=== PATIENT | female | born 1955 | race Two or more races ===

== ENCOUNTER 2017-12-28 07:44 | Emergency (ER) | payer OTHER ==
[~2017-12-28] VITALS: Ht 160 cm; Wt 75.7 kg
== END 2017-12-28 09:41 | disposition home or self-care (01) ==
LOC: ER 07:44
DX: S92.512A Displaced fracture of proximal phalanx of left lesser toe(s), initial encounter for closed fracture (principal); W18.09XA Striking against other object with subsequent fall, initial encounter; Y93.01 Activity, walking, marching and hiking; Y92.488 Other paved roadways as the place of occurrence of the external cause; Y99.8 Other external cause status

== ENCOUNTER 2023-09-29 13:53 | Emergency (ER) | payer OTHER ==
[~2023-09-29] VITALS: Ht 160 cm; Wt 77.1 kg
[2023-09-29] MEDS ORDERED: METFORMIN HCL500 M3 (14:08)
[2023-09-29] MEDS ORDERED: COZAAR25 MG PO (14:09)
[2023-09-29] MEDS ORDERED: LIPITOR40 M1 PO (14:10)
[2023-09-29] MEDS ORDERED: LINZESS290 MCG PO (14:10)
[2023-09-29] MEDS ORDERED: ECOTRIN81 MG (14:10)
[2023-09-29] MEDS ORDERED: ZEGERID 40 MG1 EACH (14:10)
== END 2023-09-29 18:27 | disposition home or self-care (01) ==
LOC: ER 13:54
DX: S61.022A Laceration with foreign body of left thumb without damage to nail, initial encounter (principal); W26.0XXA Contact with knife, initial encounter; Y93.89 Activity, other specified; Y92.89 Other specified places as the place of occurrence of the external cause
CPT/HCPCS: 90471; 90714; 96372; 99284; J1885; J3490

== ENCOUNTER 2023-10-13 18:32 | Emergency (ER) | payer OTHER ==
[~2023-10-13] VITALS: Ht 170.2 cm; Wt 83.9 kg
[~2023-10-13 18:32] MED LIST: COZAAR25 MG PO; ECOTRIN81 MG; LINZESS290 MCG PO; LIPITOR40 M1 PO; METFORMIN HCL500 M3; ZEGERID 40 MG1 EACH
== END 2023-10-13 19:47 | disposition home or self-care (01) ==
LOC: ER 18:33
DX: H00.016 Hordeolum externum left eye, unspecified eyelid (principal)